=== PATIENT | female | born 1995 | race Caucasian/White ===

== ENCOUNTER 2017-08-17 00:11 | Emergency (ER) | payer SELFPAY ==
[~2017-08-17] VITALS: Ht 160 cm; Wt 66.2 kg
--- NOTE | 2017-08-17 00:49 | NUR ---
PT ARRIVED BY SELF C/O RIGHT UPPER ABD/ RIGHT FLANK PAIN X1 WK. PT AMBULATED TO ROOM WITH STEADY GAIT. PT RESTING IN BED COMFORTABLY. AWAITING ORDERS FROM
[2017-08-17] MEDS ORDERED: ONDANSETRON 4 MG TAB.RAPDIS ONE (01:12)
[2017-08-17] MEDS ORDERED: KETOROLAC TROMETHAMINE 15 MG/ML VIAL ONE (01:13)
[2017-08-17 01:19] LABS: APPEARANCE,URINE CLEAR (CLEAR); BILIRUBIN,URINE NEGATIVE (NEGATIVE); BLOOD, URINE NEGATIVE Ery/uL (NEGATIVE); COLOR,URINE YELLOW (YELLOW); KETONES,URINE NEGATIVE (NEGATIVE); LEUKOCYTE ESTERASE ,URINE NEGATIVE (NEGATIVE); NITRITE, URINE NEGATIVE (NEGATIVE); PROTEIN,URINE NEGATIVE (NEGATIVE); UGLUCOSE NEGATIVE (NEGATIVE); UROBILINOGEN,URINE 0.2 EU/dL (0.2)
[2017-08-17 01:24] LABS: BASOPHILS # (AUTO) 0.1 /CMM (0.0-0.2); BASOPHILS % (AUTO) 0.6 % (0.0-2.0); EOSINOPHILS # (AUTO) 0.2 /CMM (0.0-0.7); EOSINOPHILS % (AUTO) 2.1 % (0.0-6.0); HEMATOCRIT 38 % (33-45); HEMOGLOBIN 12.4 g/dL (11.5-14.8); LYMPHOCYTES # (AUTO) 2.8 /CMM (0.8-4.8); LYMPHOCYTES % (AUTO) 33.9 % (20.0-44.0); MEAN CORPUSCULAR HEMOGLOBIN 30 PG (26.0-33.0); MEAN CORPUSCULAR HGB CONC 33 g/dl (31.0-36.0); MEAN CORPUSCULAR VOLUME 92 fL (82-100); MONOCYTES # (AUTO) 0.7 /CMM (0.1-1.30); MONOCYTES % (AUTO) 8.5 % (2.0-12.0); NEUTROPHILS # (AUTO) 4.5 /CMM (1.8-8.9); NEUTROPHILS % (AUTO) 54.9 % (43.0-81.0); PLATELET COUNT (AUTO) 270 /CMM (150-450); RDW COEFFICIENT OF VARIATION 13.7 (11.5-15.0); WHITE BLOOD COUNT (AUTO) 8.3 K/uL (4.3-11.0)
--- NOTE | 2017-08-17 01:25 | NUR ---
PT RESTING COMFORTABLY IN BED. LEFT AC 20G PLACED AND LABS DRAWN. PT PLACED ON MONITOR AND AWAITING FURTHER MD ORDERS.
[2017-08-17] MEDS ORDERED: KETOROLAC TROMETHAMINE INJ 30 MG/ML VIAL IM ONE (01:30)
[2017-08-17 01:39] LABS: INR 1.03 (0.87-1.13); PROTHROMBIN TIME 10.7 SECS (9.5-12.7)
[2017-08-17 01:42] LABS: ALBUMIN 3.6 g/dL (3.4-5.0); BILIRUBIN,DIRECT 0.1 mg/dL (0.0-0.2); BILIRUBIN,TOTAL 0.2 mg/dL (0.2-1.0); CREATININE 0.6 mg/dL (0.6-1.3); POTASSIUM 3.6 mmol/L (3.5-5.1); TOTAL PROTEIN, SERUM 6.9 g/dL (6.4-8.2)
--- NOTE | 2017-08-17 02:15 | NUR ---
us tech in room with pt.
[2017-08-17] MEDS ORDERED: MAG HYDROX/AL HYDROX/SIMETH 30 ML UDC PO ONE (03:00)
[2017-08-17] MEDS ORDERED: LIDOCAINE VISCOUS 2% UD 15 ML UDC MM ONE (03:00)
[2017-08-17] MEDS ORDERED: FAMOTIDINE (20 MG) 20 MG TABLET ONE (03:55)
--- NOTE | 2017-08-17 04:32 | NUR ---
Patient discharged to home in stable condition. Written and verbal after care instructions given. Patient verbalizes understanding of instruction. pt. ambulatory with a steady gait. IV removed. Catheter intact and site benign. Pressure and 4x4 applied to site. No bleeding noted.
[2017-08-17 04:35] VITALS: BP 110/64
[2017-08-18] MEDS ORDERED: FAMOTIDINE (20 MG) 20 MG TABLET PO ONE (22:30)
[2017-08-18] MEDS ORDERED: ONDANSETRON 4 MG TAB.RAPDIS SL ONE (22:30)
== END 2017-08-17 04:38 | disposition home or self-care (01) ==
LOC: ER 00:13
DX: K21.9 Gastro-esophageal reflux disease without esophagitis (principal); K59.00 Constipation, unspecified
CPT/HCPCS: 36415; 74176; 76705; 80048; 80076; 81001; 83690; 84703; 85025; 85730; 99285; A4606; J1885; Q0162; Z7610; 81000-TC

== ENCOUNTER 2018-12-17 17:48 | Emergency (ER) | payer SELFPAY ==
[~2018-12-17] VITALS: Ht 160 cm; Wt 66.2 kg
[2018-12-17 17:48] VITALS: BP 112/68
[2018-12-17] MEDS ORDERED: ONDANSETRON 4 MG TAB.RAPDIS SL ONE (18:30)
[2018-12-17] MEDS ORDERED: ONDANSETRON 4 MG TAB.RAPDIS ONE ×2 (18:37→18:44)
== END 2018-12-17 19:28 | disposition home or self-care (01) ==
LOC: ER 17:51
DX: A08.4 Viral intestinal infection, unspecified (principal)
CPT/HCPCS: Q0162

== ENCOUNTER 2019-04-12 22:03 | Emergency (ER) | payer MEDICAID ==
[~2019-04-12] VITALS: Ht 160 cm; Wt 65.3 kg
--- NOTE | 2019-04-12 22:31 | NUR ---
PT PRESENTED TO THE ER WITH A C/O RUQ ABD PAIN SINCE FRIDAY. PT STATED THAT SHE WENT TO THE URGENT CARE ON FRIDAY AND THE DR THERE THOUGHT IT WAS GALLSTONES. PT STATED THAT SHE HAS BEEN EATING A HIGH FAT DIET AND IS VEGAN. PT REC'D A WARM PACK FOR THE RUQ AND PT REFUSED ALL MEDICATION. Bryanna GOLDSTEIN PA-C IS AT THE BEDSIDE EVALUATING THE PT. PT DENIES CONSTIPATION. LAST BM WAS YESTERDAY AND SLIGHTLY LOOSE. PT STATED THAT SHE WAS NOT ABLE TO EAT SINCE YESTERDAY, ONLY SMALL SNACKS LIKE AN APPLE.
[2019-04-12 22:34] LABS: BASOPHILS # (AUTO) 0.1 /CMM (0.0-0.2); BASOPHILS % (AUTO) 0.8 % (0.0-2.0); EOSINOPHILS % (AUTO) 1.3 % (0.0-6.0); HEMATOCRIT 40 % (33-45); HEMOGLOBIN 13.4 g/dL (11.5-14.8); LYMPHOCYTES % (AUTO) 27.9 % (20.0-44.0); MEAN CORPUSCULAR HGB CONC 34 g/dl (31.0-36.0); MEAN CORPUSCULAR VOLUME 93 fL (82-100); MONOCYTES # (AUTO) 0.5 /CMM (0.1-1.30); MONOCYTES % (AUTO) 6.6 % (2.0-12.0); NEUTROPHILS # (AUTO) 4.6 /CMM (1.8-8.9); NEUTROPHILS % (AUTO) 63.4 % (43.0-81.0); PLATELET COUNT (AUTO) 294 /CMM (150-450); WHITE BLOOD COUNT (AUTO) 7.2 K/uL (4.3-11.0)
[2019-04-12 22:42] LABS: APPEARANCE,URINE Clear (CLEAR); BILIRUBIN,URINE Negative (NEGATIVE); BLOOD, URINE Trace-lysed Ery/uL (NEGATIVE); COLOR,URINE Yellow (YELLOW); KETONES,URINE 15 (NEGATIVE); LEUKOCYTE ESTERASE ,URINE Negative (NEGATIVE); NITRITE, URINE Negative (NEGATIVE); PH,URINE 5.5 (5.0-8.0); PROTEIN,URINE Negative (NEGATIVE); UGLUCOSE Negative (NEGATIVE); UROBILINOGEN,URINE 0.2 EU/dL (0.2)
[2019-04-12 22:42] LABS: CALCIUM, SERUM 9.1 mg/dL (8.5-10.1); CREATININE 0.6 mg/dL (0.6-1.3); POTASSIUM 3.5 mmol/L (3.5-5.1)
[2019-04-12 22:49] LABS: ALBUMIN 3.9 g/dL (3.4-5.0); BILIRUBIN,DIRECT 0.1 mg/dL (0.0-0.2); BILIRUBIN,TOTAL 0.5 mg/dL (0.2-1.0); TOTAL PROTEIN, SERUM 7.3 g/dL (6.4-8.2)
--- NOTE | 2019-04-12 22:59 | NUR ---
PT APPEARS TO BE RESTING COMFORTABLY WITH NO S/S OF PAIN OR DISTRESS. VSS
[2019-04-12 23:13] LABS: BACTERIA,URINE Few /HPF (None Seen); RBC,URINE 0-2 /HPF (0-2); SQUAMOUS EPITHELIAL CELL,UR Few /HPF (None Seen); WBC,URINE 0-2 /HPF (0-3)
--- NOTE | 2019-04-12 23:25 | NUR ---
Bryanna GOLDSTEIN PA-C IS AT THE BEDSIDE SPEAKING TO THE PT.
--- NOTE | 2019-04-12 23:32 | NUR ---
IV removed. Catheter intact and site benign. Pressure and 4x4 applied to site. No bleeding noted. Patient discharged to home in stable condition. Written and verbal after care instructions given. Patient verbalizes understanding of instruction AND RX. PT AMBULATED OUT WITH A STEADY GAIT. VSS.
[2019-04-12 23:47] VITALS: BP 94/55
== END 2019-04-12 23:48 | disposition home or self-care (01) ==
LOC: ER 22:06
DX: R10.11 Right upper quadrant pain (principal)
CPT/HCPCS: 36415; 80048-TC; 80076-TC; 81000-TC; 83690-TC; 84703-TC; 85025-TC; 87086-TC